=== PATIENT | male | born 1930 | race Caucasian/White ===

== ENCOUNTER 2016-09-17 23:47 | Emergency (ER) | payer MEDICARE, BC ==
[~2016-09-17 23:47] MED LIST: 8 HOUR650 MG PO; ARTHROTEC 50 PO; BEN25 PO; BIST PO; CARDCD180 PO; CARDCD240 PO; COUMADIN4 MG PO; DSS PO; FIBERCON PO; HYDROCORTISONE30 GM TOP; JANTOVEN4 MG PO; MICARDIS20 MG PO; MULTIVITAMI1 PO; VITAMIN D31000 UNIT PO; [UNRECOGNIZED DRUG - OTHER] EX
[2016-09-18 00:38] LABS: BASOPHILS 0.8 %; BASOPHILS ABSOLUTE 0.05 10/3/uL (0.0-0.16); EOSINOPHILS 8.2 %; EOSINOPHILS ABSOLUTE 0.51 10/3/uL (0.0-0.53); ER CBC TAT 0 Hrs 02 Mins; HEMATOCRIT 35.4 % (40.0-51.0); HEMOGLOBIN 12.3 g/dL (13.6-17.8); IMMATURE GRANULOCYTES 0.3 %; IMMATURE GRANULOCYTES ABSOLUTE 0.02 10/3/uL (0.0-0.11); LYMPHOCYTES 29.6 %; LYMPHOCYTES ABSOLUTE 1.84 10/3/uL (0.67-4.30); MANUAL DIFF NO %; MEAN CORPUS HGB CONC 34.7 g/dL (32.0-36.0); MEAN CORPUSCULAR HEMOGLOB 31.6 pg (26.0-34.0); MEAN PLATELET VOLUME 9.5 fL (9.2-13.0); MONOCYTES 9.8 %; MONOCYTES ABSOLUTE 0.61 10/3/uL (0.21-1.20); NEUTROPHILS 51.3 %; NEUTROPHILS ABSOLUTE 3.19 10/3/uL (2.02-8.40); PLATELET COUNT 216 10/3/uL (150-400); RBC DISTRIBUTION WIDTH 12.8 % (12.0-16.0); RED CELL COUNT 3.89 10/6/uL (4.7-6.1); WHITE BLOOD CELLS 6.2 10/3/uL (4.5-10.5)
[2016-09-18 00:45] LABS: INTERNATIONAL NORMAL RATI 2.1 UNITS (-)
[2016-09-18 00:46] LABS: PARTIAL THROMBO TIME 37.7 SEC (22.5-37.2)
[2016-09-18 00:59] LABS: BUN (BLOOD UREA NITROGEN) 11 MG/DL (6-23); CALCIUM, SERUM 8.8 MG/DL (8.5-10.4); CHEST PAIN PROFILE TAT 0 Hrs 23 Mins; CHLORIDE, SERUM 104 MMOL/L (96-112); CO2 (CARBON DIOXIDE) 26 MMOL/L (24-34); GFR AFRICAN AMERICAN 101 ML/MIN (>=60); GFR NON AFRICAN AMERICAN 87 ML/MIN (>=60); GLUCOSE, SERUM 90 MG/DL (60-99); POTASSIUM, SERUM 4.1 MMOL/L (3.5-5.3); SODIUM, SERUM 140 MMOL/L (135-148); TROPONIN I <0.02 NG/ML (<0.05)
== END 2016-09-18 01:51 | disposition home or self-care (01) ==
LOC: ER 23:47
PROVIDERS: Emergency Medicine
DX: I48.91 Unspecified atrial fibrillation (principal); I10 Essential (primary) hypertension; Z88.0 Allergy status to penicillin; Z91.018 Allergy to other foods; Z79.01 Long term (current) use of anticoagulants; Z79.899 Other long term (current) drug therapy
CPT/HCPCS: 71010; 80048; 83735; 84484; 85025; 85610; 85730; 93005; 99285

== ENCOUNTER 2017-05-02 17:25 | Observation (INO) | payer MEDICARE, BC ==
[~2017-05-02] VITALS: Ht 172.7 cm; Wt 85.3 kg
--- NOTE | ~2017-05-02 | HP ---
History And Physical [facility] [id number] [place]. [address] NAME: MARLEEN YANG : 34 STATUS : ADM Tawanna PAT#: [id number] AGE: 86 ADM/REG DATE : 05/02/17 MR#: [id number] REPORT SERV DATE: 05/03/17 DICTATED BY: HEIDE HAMPTON DATE: 05/02/17 REPORT STATUS : Draft TRANSCRIBED BY: MODL DATE: 05/02/17 DATE OF ADMISSION: 05/02/2017 HISTORY OF PRESENT ILLNESS: This is an 86-year-old white male who was admitted through the emergency room with atrial fibrillation/flutter with rapid ventricular response. He has since been on a Cardizem drip IV and is now in sinus rhythm. Initial EKG showed atrial flutter with 2:1 block. This gentleman has had paroxysmal atrial flutter/fibrillation in the past, and sees Dr. Burgess. He has not been on oral anticoagulation lately because of a GI bleed. ALLERGIES: HE IS INTOLERANT TO PENICILLIN. FAMILY HISTORY: There is a family history of renal insufficiency with a brother on dialysis. PREVIOUS SURGERIES: Include back surgery and hemorrhoidectomy. SOCIAL HISTORY: He is a nonsmoker. MEDICATIONS: At home have included multivitamin, diltiazem, Benadryl, Colace, Mary Ann, and Namenda. LABORATORY DATA AND IMAGING: At the present time, he is in sinus rhythm and has no chest pain or shortness of breath. There is no ST elevation on EKG. Troponin is less than 0.02. He has no chest pain. Platelet count 199,000, hematocrit 37%, white blood cell count 6500, BUN 17, creatinine 0.74, potassium 4.4, random blood sugar 94 mg percent. Magnesium is normal. Chest x-ray showed no acute changes read in the emergency room. PHYSICAL EXAMINATION: VITAL SIGNS: Blood pressure is 138/80 at the moment. HEENT: Head is normocephalic. He has male pattern baldness. Eyes, PERRLA. Nose had no epistaxis. SKIN: Clear of ulceration. NECK: Supple. CHEST: Clear. HEART: Had fairly regular rhythm at the moment. No murmurs are appreciated. No pericardial friction rubs. ABDOMEN: Benign. Nontender. No hepatosplenomegaly or abnormal masses. Bit overweight. EXTREMITIES: Had no clubbing, edema, or cyanosis. NEUROLOGIC: Intact. He is oriented to time, place, and person. CLINICAL IMPRESSION: 1. Paroxysmal atrial flutter/fibrillation. 2. History of hypertension. 3. History of gastrointestinal bleed - not on oral an anticoagulant at the moment. 4. Status post back surgery. History And Physical [address] [address] NAME: MARLEEN YANG : 34 STATUS : ADM Tawanna PAT#: [id number] AGE: 86 ADM/REG DATE : 05/02/17 MR#: [id number] REPORT SERV DATE: 05/03/17 DICTATED BY: HEIDE HAMPTON DATE: 05/02/17 REPORT STATUS : Draft TRANSCRIBED BY: CHERIE DATE: 05/02/17 RECOMMENDATIONS: 1. Continue oral Cardizem and wean off the IV Cardizem. 2. Check TSH and echocardiogram. 3. Dr. Burgess will continue to follow him when he returns to call. RB/CHERIE Heide Hampton M.D. / [id number] CC: Hanna Martinez, MSN, ROOM SERVICE RUNNER-BC
[2017-05-02 17:54] LABS: BASOPHILS 0.6 %; BASOPHILS ABSOLUTE 0.04 10/3/uL (0.0-0.16); EOSINOPHILS 5.7 %; EOSINOPHILS ABSOLUTE 0.37 10/3/uL (0.0-0.53); HEMATOCRIT 37.1 % (40.0-51.0); IMMATURE GRANULOCYTES 0.3 %; IMMATURE GRANULOCYTES ABSOLUTE 0.02 10/3/uL (0.0-0.11); LYMPHOCYTES 21.3 %; LYMPHOCYTES ABSOLUTE 1.39 10/3/uL (0.67-4.30); MANUAL DIFF NO %; MEAN CORPUSCULAR HEMOGLOB 31.4 pg (26.0-34.0); MEAN CORPUSCULAR VOLUME 89.6 fL (80-100); MEAN PLATELET VOLUME 9.3 fL (9.2-13.0); MONOCYTES 10.4 %; MONOCYTES ABSOLUTE 0.68 10/3/uL (0.21-1.20); NEUTROPHILS 61.7 %; NEUTROPHILS ABSOLUTE 4.03 10/3/uL (2.02-8.40); PLATELET COUNT 199 10/3/uL (150-400); RBC DISTRIBUTION WIDTH 13.7 % (12.0-16.0); RED CELL COUNT 4.14 10/6/uL (4.7-6.1); WHITE BLOOD CELLS 6.5 10/3/uL (4.5-10.5)
[2017-05-02 18:03] LABS: INTERNATIONAL NORMAL RATI 1.1 UNITS (-); PARTIAL THROMBO TIME 29.5 SEC (22.5-37.2)
[2017-05-02 18:10] LABS: CALCIUM, SERUM 8.8 MG/DL (8.5-10.4); CHEST PAIN PROFILE TAT 0 Hrs 20 Mins; CHLORIDE, SERUM 107 MMOL/L (96-112); CO2 (CARBON DIOXIDE) 27 MMOL/L (24-34); CREATININE 0.74 MG/DL (0.70-1.30); GFR AFRICAN AMERICAN 98 ML/MIN (>=60); GFR NON AFRICAN AMERICAN 85 ML/MIN (>=60); GLUCOSE, SERUM 94 MG/DL (60-99); POTASSIUM, SERUM 4.4 MMOL/L (3.5-5.3); SODIUM, SERUM 140 MMOL/L (135-148); TROPONIN I <0.02 NG/ML (<0.05)
[2017-05-02 18:12] LABS: BUN (BLOOD UREA NITROGEN) 17 MG/DL (6-23)
[2017-05-02] MEDS ORDERED: PRILO PO (19:52)
[2017-05-02] MEDS ORDERED: CARTIA XT180 MG/24 PO (19:53)
[2017-05-02] MEDS ORDERED: DSS PO (19:53)
[2017-05-02] MEDS ORDERED: THERGRANM PO (19:53)
[2017-05-02] MEDS ORDERED: NAMENDA10 MG PO (19:54)
[2017-05-02] MEDS ORDERED: MICARDIS20 MG PO (19:55)
[2017-05-02] MEDS ORDERED: ALLEGRA180 PO (19:55)
[2017-05-02] MEDS ORDERED: BEN25 PO (19:55)
[2017-05-02] MEDS ORDERED: CARD30 PO (19:56)
[2017-05-03 00:33] LABS: FREE T4 0.87 NG/DL (0.76-1.46); TROPONIN I <0.02 NG/ML (<0.05)
== END 2017-05-04 12:39 | disposition home or self-care (01) ==
LOC: ENRESERVTM → ENRESERVDT → ENRESERV → CANRESERV → ER 17:25 → CDU1 19:50 → CDU2 19:50 → SSU1 19:50 → CDU2 21:14 → SSU1 05-03 13:00
PROVIDERS: Clinical Nurse Specialist; Emergency Medicine
DX: I48.3 Typical atrial flutter (principal); I48.0 Paroxysmal atrial fibrillation; I10 Essential (primary) hypertension; Z88.0 Allergy status to penicillin; Z87.19 Personal history of other diseases of the digestive system; Z91.018 Allergy to other foods; Z87.891 Personal history of nicotine dependence; Z98.890 Other specified postprocedural states; Z79.899 Other long term (current) drug therapy
CPT/HCPCS: 71010; 71020; 80048; 82962; 83735; 83880; 84439; 84443; 84484; 85025; 85610; 85730; 93005; 93613; 93621; 93653; 96374; 99291; A9270-GY; C1732; C1769; C1781; C1894; C8929; G0378; J0330; Q9957